=== PATIENT | female | born 1965 | race Caucasian/White ===

== ENCOUNTER 2023-02-22 20:26 | Inpatient (IN) ==
[2023-02-22] MEDS ORDERED: Ondansetron 4 mg VIAL 2 MG/ML 2 ml VIAL IV PRN (22:21)
[2023-02-22] MEDS ORDERED: NS 0.9% 1000 ml BAG 1,000 ML IV SCH (22:30)
[2023-02-22] MEDS ORDERED: Enoxaparin 40 MG/0.4 ML SYR SUBCUT SCH (23:00)
[2023-02-22 23:16] LABS: ABS Lymphocytes 0.9 10^3/uL (1.0-4.8); ABS Monocytes 0.7 10^3/uL (0.0-0.9); ABS Neutrophils 13.5 10^3/uL (1.5-7.6); Eosinophil % 0.2 %; Hematocrit 28.5 % (35-45); Hemoglobin 9.6 g/dL (11.5-14.3); Lymphocyte % 5.7 %; Mean Corpuscular Hemoglobin 28.9 pg (27-33); Mean Corpuscular Hgb Conc 33.6 g/dL (31-36); Mean Corpuscular Volume 86.1 fL (80-97); Mean Platelet Volume 6.8 fL (7.5-11.2); Platelet Count 582 10^3/uL (150-450); Red Blood Count 3.31 10^6/uL (3.63-4.92); Red Cell Distribution Width 14.7 % (12-17); White Blood Count 15.1 10^3/uL (3.8-11.8)
[2023-02-22 23:55] LABS: Albumin 2.8 g/dL (3.2-5.2); Albumin/Globulin Ratio 0.8 (1-3); Calcium 8.6 mg/dL (8.6-10.3); Creatinine, Serum 0.58 mg/dL (0.51-0.95); Globulin 3.4 g/dL (2-4); Potassium 3.4 mmol/L (3.5-5.0); Total Bilirubin 0.3 mg/dL (0.2-1.0); Total Protein 6.2 g/dL (6.4-8.9); eGFR CKD-EPI 104.8 (>60)
[2023-02-23] MEDS ORDERED: D5W 1/2 NS 1000 ml BAG 1,000 ML IV SCH (02:00)
[2023-02-23] MEDS ORDERED: Ciprofloxacin 200mg IVPREMIX 200 MG/100 ML BAG IV SCH (03:00)
[2023-02-23] MEDS: KCL 20 MEQ/100 ML IVPREMIX 20 MEQ/100 ML BAG IV SCH ×3 (03:15→14:18)
[2023-02-23] MEDS ORDERED: metroNIDAZOLE IV 500 MG/100ML 500 MG/100 ML BAG IVPB SCH (04:00)
[2023-02-23] MEDS ORDERED: Levothyroxine 100 MCG/5 ML VIAL IV SCH (09:00)
[2023-02-23] MEDS ORDERED: Lactated Ringers 1000 ml BAG 1,000 ML IV ONE (09:30)
[2023-02-23] MEDS ORDERED: cefTRIAXone 1 gm/50 mL D5W 1 GM/50 ML BAG IV SCH (11:00)
[2023-02-23 12:17] LABS: ABS Lymphocytes 0.7 10^3/uL (1.0-4.8); ABS Monocytes 0.7 10^3/uL (0.0-0.9); ABS Neutrophils 12.5 10^3/uL (1.5-7.6); Eosinophil % 0.2 %; Hematocrit 24.3 % (35-45); Hemoglobin 8.4 g/dL (11.5-14.3); Lymphocyte % 5.1 %; Mean Corpuscular Hemoglobin 29.4 pg (27-33); Mean Corpuscular Hgb Conc 34.5 g/dL (31-36); Mean Corpuscular Volume 85.4 fL (80-97); Mean Platelet Volume 6.8 fL (7.5-11.2); Platelet Count 481 10^3/uL (150-450); Red Blood Count 2.84 10^6/uL (3.63-4.92); Red Cell Distribution Width 14.8 % (12-17)
[2023-02-23 12:27] LABS: Albumin 2.3 g/dL (3.2-5.2); Calcium 7.9 mg/dL (8.6-10.3); Magnesium 1.8 mg/dL (1.9-2.7); Potassium 3.9 mmol/L (3.5-5.0); Total Bilirubin 0.3 mg/dL (0.2-1.0)
[2023-02-23 12:32] LABS: Albumin/Globulin Ratio 0.8 (1-3); Creatinine, Serum 0.4 mg/dL (0.51-0.95); Globulin 2.8 g/dL (2-4); Total Protein 5.1 g/dL (6.4-8.9); eGFR CKD-EPI 114.7 (>60)
[2023-02-23] MEDS: metroNIDAZOLE IV 500 MG/100ML 500 MG/100 ML BAG IVPB SCH (16:14)
[2023-02-23] MEDS: Pantoprazole VIAL 40 MG VIAL IV SCH (16:14)
[2023-02-23] MEDS ORDERED: Albuterol HFA INHALER 8 gm MDI INH PRN (16:23)
[2023-02-23] MEDS ORDERED: Enoxaparin 40 MG/0.4 ML SYR SUBCUT SCH (18:00)
[2023-02-23] MEDS ORDERED: D5LR 1000 ml BAG 1,000 ML IV SCH (18:00)
[2023-02-24] MEDS: metroNIDAZOLE IV 500 MG/100ML 500 MG/100 ML BAG IVPB SCH ×2 (03:51→19:16)
[2023-02-24] MEDS ORDERED: Buffered Lidocaine 1% SYRIN 1 ml INTRADERM ONE (06:00)
[2023-02-24] MEDS ORDERED: Propofol 10 MG/ML 20 ML BTL ONE (06:52)
[2023-02-24] MEDS ORDERED: Midazolam 2 mg/2 ml VIAL 1 mg/ml 2 ml VIAL (2 mg) ONE (06:52)
[2023-02-24] MEDS ORDERED: fentaNYL 100 mcg/2 ml 50 MCG/ML VIAL ONE ×3 (06:52→12:43)
[2023-02-24] MEDS ORDERED: Rocuronium 50 mg VIAL 10 mg/ml 5 ml VIAL (50 mg) ONE (06:52)
[2023-02-24] MEDS ORDERED: Lidocaine 2% PF 5 ML VIAL ONE (06:52)
[2023-02-24 06:59] LABS: ABS Monocytes 0.6 10^3/uL (0.0-0.9); ABS Neutrophils 11.9 10^3/uL (1.5-7.6); Eosinophil % 0.2 %; Hematocrit 24.4 % (35-45); Hemoglobin 8.3 g/dL (11.5-14.3); Lymphocyte % 7.2 %; Mean Corpuscular Hemoglobin 29.2 pg (27-33); Mean Corpuscular Hgb Conc 34.1 g/dL (31-36); Mean Corpuscular Volume 85.8 fL (80-97); Mean Platelet Volume 6.8 fL (7.5-11.2); Platelet Count 512 10^3/uL (150-450); Red Blood Count 2.84 10^6/uL (3.63-4.92); Red Cell Distribution Width 14.5 % (12-17); White Blood Count 13.5 10^3/uL (3.8-11.8)
[2023-02-24 07:06] LABS: Albumin 2.3 g/dL (3.2-5.2); Albumin/Globulin Ratio 0.9 (1-3); Creatinine, Serum 0.42 mg/dL (0.51-0.95); Globulin 2.7 g/dL (2-4); Potassium 3.6 mmol/L (3.5-5.0); Total Bilirubin 0.3 mg/dL (0.2-1.0); eGFR CKD-EPI 113.3 (>60)
[2023-02-24] MEDS ORDERED: Scopolamine 1 mg/72hr PATCH ONE (08:18)
[2023-02-24] MEDS ORDERED: Levalbuterol 1.25MG/0.5ML NEB.SOL ONE (08:18)
[2023-02-24] MEDS ORDERED: Levalbuterol 1.25MG/0.5ML NEB.SOL INH ONE (08:23)
[2023-02-24] MEDS ORDERED: Dexamethasone IV 4 MG/ML VIAL 1 ml VIAL ONE ×2 (08:56)
[2023-02-24] MEDS ORDERED: Ondansetron 4 mg VIAL 2 MG/ML 2 ml VIAL ONE (08:56)
[2023-02-24] MEDS ORDERED: Bupivacaine 0.25% SDV PF 10 ML VIAL INJ ONE (09:05)
[2023-02-24] MEDS ORDERED: Bupivacaine 0.25% w/EPI 10 ML SDV ONE (09:06)
[2023-02-24] MEDS ORDERED: Phenylephrine 40 mcg/mL 10mL (400mcg) SYRINGE ONE (09:11)
[2023-02-24] MEDS ORDERED: Acetaminophen IV 1 GM/100ML 1,000 MG/100 ML BAG IV ONE (09:14)
[2023-02-24] MEDS ORDERED: HYDROmorphone 0.5 MG/0.5 ML SYRINGE ONE (09:16)
[2023-02-24] MEDS ORDERED: Phenylephrine IV 10 MG/ML 1 ml VIAL ONE (09:34)
[2023-02-24] MEDS ORDERED: cefTRIAXone 1 gm/50 mL D5W 1 GM/50 ML BAG IV ONE (10:44)
[2023-02-24] MEDS ORDERED: cefTRIAXone 1 gm/50 mL D5W 1 GM/50 ML BAG IV SCH (11:00)
[2023-02-24 11:16] LABS: Hemoglobin 8.4 g/dL (11.5-14.3)
[2023-02-24] MEDS ORDERED: ROPIVACAINE 5 MG/ML 30 ML BTL (0.5%) ONE (11:43)
[2023-02-24] MEDS ORDERED: Naloxone 0.4 mg VIAL 0.4 mg/ml 1 ml VIAL IV PRN (12:47)
[2023-02-24] MEDS: fentaNYL 100 mcg/2 ml 50 MCG/ML VIAL IV PRN ×2 (12:51→13:36)
[2023-02-24] MEDS ORDERED: HYDROmorphone PCA 20 MG/20 ML PCA.SYRING PCA SCH (14:00)
[2023-02-24] MEDS: Lactated Ringers 1000 ml BAG 1,000 ML IV SCH (15:30)
[2023-02-24] MEDS: Scopolamine 1 mg/72hr PATCH TRANSDERM SCH (17:46)
[2023-02-24] MEDS: Pantoprazole VIAL 40 MG VIAL IV SCH (17:48)
[2023-02-24] MEDS: cefTRIAXone 1 gm/50 mL D5W 1 GM/50 ML BAG IV SCH (18:06)
[2023-02-25] MEDS: Lactated Ringers 1000 ml BAG 1,000 ML IV SCH ×2 (01:25→11:45)
[2023-02-25] MEDS: metroNIDAZOLE IV 500 MG/100ML 500 MG/100 ML BAG IVPB SCH ×2 (04:27→16:07)
[2023-02-25 09:08] LABS: Hemoglobin 8.4 g/dL (11.5-14.3); Mean Corpuscular Hgb Conc 33.5 g/dL (31-36); Mean Corpuscular Volume 86.5 fL (80-97); Mean Platelet Volume 6.5 fL (7.5-11.2); Platelet Count 514 10^3/uL (150-450); Red Blood Count 2.89 10^6/uL (3.63-4.92); Red Cell Distribution Width 14.9 % (12-17); White Blood Count 11.8 10^3/uL (3.8-11.8)
[2023-02-25 10:07] LABS: Calcium 7.7 mg/dL (8.6-10.3); Creatinine, Serum 0.43 mg/dL (0.51-0.95); Potassium 3.6 mmol/L (3.5-5.0); eGFR CKD-EPI 112.7 (>60)
[2023-02-25] MEDS: Enoxaparin 40 MG/0.4 ML SYR SUBCUT SCH (12:42)
[2023-02-25] MEDS: Pantoprazole VIAL 40 MG VIAL IV SCH (16:25)
[2023-02-25] MEDS: cefTRIAXone 1 gm/50 mL D5W 1 GM/50 ML BAG IV SCH (16:48)
[2023-02-26] MEDS: metroNIDAZOLE IV 500 MG/100ML 500 MG/100 ML BAG IVPB SCH ×2 (05:21→15:34)
[2023-02-26] MEDS: Lactated Ringers 1000 ml BAG 1,000 ML IV SCH ×2 (09:19→20:48)
[2023-02-26] MEDS: Enoxaparin 40 MG/0.4 ML SYR SUBCUT SCH (13:17)
[2023-02-26] MEDS: Pantoprazole VIAL 40 MG VIAL IV SCH (15:33)
[2023-02-26] MEDS: cefTRIAXone 1 gm/50 mL D5W 1 GM/50 ML BAG IV SCH (17:21)
[2023-02-27] MEDS: metroNIDAZOLE IV 500 MG/100ML 500 MG/100 ML BAG IVPB SCH ×2 (03:54→15:32)
[2023-02-27] MEDS: Lactated Ringers 1000 ml BAG 1,000 ML IV SCH (05:52)
[2023-02-27] MEDS ORDERED: HYDROmorphone 0.5 MG/0.5 ML SYRINGE IV PRN (08:54)
[2023-02-27] MEDS: Scopolamine 1 mg/72hr PATCH TRANSDERM SCH (09:29)
[2023-02-27] MEDS: Enoxaparin 40 MG/0.4 ML SYR SUBCUT SCH (12:29)
[2023-02-27] MEDS: Pantoprazole VIAL 40 MG VIAL IV SCH (15:32)
[2023-02-27] MEDS: cefTRIAXone 1 gm/50 mL D5W 1 GM/50 ML BAG IV SCH ×2 (17:30→17:41)
[2023-02-28] MEDS: metroNIDAZOLE IV 500 MG/100ML 500 MG/100 ML BAG IVPB SCH ×2 (03:04→16:42)
[2023-02-28 06:58] LABS: ABS Eosinophils 0.1 10^3/uL (0.0-0.5); ABS Lymphocytes 0.8 10^3/uL (1.0-4.8); ABS Monocytes 0.2 10^3/uL (0.0-0.9); ABS Neutrophils 4.1 10^3/uL (1.5-7.6); ABS Nucleated RBC 0.01 10^3/ul; Eosinophil % 1.6 %; Hematocrit 21.1 % (35-45); Hemoglobin 7.2 g/dL (11.5-14.3); Lymphocyte % 14.5 %; Mean Corpuscular Hemoglobin 29.6 pg (27-33); Mean Corpuscular Hgb Conc 34.2 g/dL (31-36); Mean Corpuscular Volume 86.4 fL (80-97); Mean Platelet Volume 6.6 fL (7.5-11.2); Nucleated Red Blood Cells % 0.1 /100 WBC (0.0-0.4); Platelet Count 451 10^3/uL (150-450); Red Blood Count 2.44 10^6/uL (3.63-4.92); Red Cell Distribution Width 14.7 % (12-17); White Blood Count 5.2 10^3/uL (3.8-11.8)
[2023-02-28 07:00] LABS: Calcium 7.4 mg/dL (8.6-10.3); Creatinine, Serum 0.47 mg/dL (0.51-0.95); Potassium 3.2 mmol/L (3.5-5.0); eGFR CKD-EPI 110.3 (>60)
[2023-02-28 12:13] LABS: Ferritin 224.7 ng/mL (11-307)
[2023-02-28] MEDS: Enoxaparin 40 MG/0.4 ML SYR SUBCUT SCH (14:23)
[2023-02-28 14:49] VITALS: BP 102/66
== END 2023-02-28 16:00 | disposition home or self-care (01) | DRG 221 ==
LOC: ED 20:26 → EDHOLD 22:21 → SUATTDRO 22:21 → EDHOLD 02-23 12:10 → MED 02-23 14:32 → SSU 02-23 16:05
PROVIDERS: ADMIT Internal Medicine; ATTEND Internal Medicine Clinical Cardiac Electrophysiology

== ENCOUNTER 2023-04-25 09:10 | Inpatient (IN) ==
[~2023-04-25 09:10] MED LIST: Fluconazole 200 MG IVPREMIX 200 MG/100 ML BAG IV SCH; Fluconazole 200 MG IVPREMIX 200 MG/100 ML BAG IVPB SCH
[2023-04-25 10:00] LABS: Hematocrit 33.4 % (35-45); Hemoglobin 11.6 g/dL (11.5-14.3); Mean Corpuscular Hgb Conc 34.7 g/dL (31-36); Mean Corpuscular Volume 89.5 fL (80-97); Mean Platelet Volume 7.4 fL (7.5-11.2); Platelet Count 243 10^3/uL (150-450); Red Blood Count 3.73 10^6/uL (3.63-4.92); Red Cell Distribution Width 17.5 % (12-17); White Blood Count 2.5 10^3/uL (3.8-11.8)
[2023-04-25 10:01] LABS: ABS Neutrophils 1.6 10^3/uL (1.5-7.6)
[2023-04-25 10:22] LABS: Calcium 9.3 mg/dL (8.6-10.3); Creatinine, Serum 0.98 mg/dL (0.51-0.95); Potassium 3.8 mmol/L (3.5-5.0); eGFR CKD-EPI 66.9 (>60)
[2023-04-25 10:35] LABS: ABS Lymphocytes 0.3 10^3/uL (1.0-4.8); ABS Monocytes 0.5 10^3/uL (0.0-0.9); ABS Nucleated RBC 0.01 10^3/ul; Dohle Bodies Present; Eosinophil % 1.2 %; Lymphocyte % 10.8 %; Nucleated Red Blood Cells % 0.3 %/100WBC (0.0-0.8); RBC Morphology Normal (Normal); Toxic Granulation 2+
[2023-04-25] MEDS: Enoxaparin 40 MG/0.4 ML SYR SUBCUT SCH (17:09)
[2023-04-25] MEDS: NS 0.9% 1000 ml BAG 1,000 ML IV SCH (17:10)
[2023-04-25] MEDS: Diphenoxylat/Atrop 2.5-0.025mg TAB PO SCH (20:20)
[2023-04-26] MEDS: NS 0.9% 1000 ml BAG 1,000 ML IV SCH ×4 (00:10→22:17)
[2023-04-26 07:42] LABS: Hematocrit 26.1 % (35-45); Hemoglobin 9.1 g/dL (11.5-14.3); Mean Corpuscular Hemoglobin 31.5 pg (27-33); Mean Corpuscular Hgb Conc 34.8 g/dL (31-36); Mean Corpuscular Volume 90.6 fL (80-97); Mean Platelet Volume 7.2 fL (7.5-11.2); Red Blood Count 2.88 10^6/uL (3.63-4.92); Red Cell Distribution Width 17.2 % (12-17); White Blood Count 2.5 10^3/uL (3.8-11.8)
[2023-04-26 07:57] LABS: Albumin 2.5 g/dL (3.2-5.2); Albumin/Globulin Ratio 1.1 (1-3); Calcium 7.7 mg/dL (8.6-10.3); Creatinine, Serum 0.57 mg/dL (0.51-0.95); Globulin 2.3 g/dL (2-4); Magnesium 1.8 mg/dL (1.9-2.7); Potassium 3.1 mmol/L (3.5-5.0); Total Bilirubin 0.2 mg/dL (0.2-1.0); Total Protein 4.8 g/dL (6.4-8.9); eGFR CKD-EPI 105.3 (>60)
[2023-04-26 10:11] LABS: ABS Lymphocytes 0.4 10^3/uL (1.0-4.8); ABS Monocytes 0.5 10^3/uL (0.0-0.9); ABS Neutrophils 1.6 10^3/uL (1.5-7.6); Acanthocytes 1+; Dohle Bodies Present; Eosinophil % 1.7 %; Lymphocyte % 15.8 %; Toxic Granulation 2+
[2023-04-26 10:12] LABS: Platelet Count Platelets clumped. 10^3/uL (150-450)
[2023-04-26] MEDS: KCL 20 MEQ/100 ML IVPREMIX 20 MEQ/100 ML BAG IV SCH ×2 (10:30→14:25)
[2023-04-26] MEDS: Diphenoxylat/Atrop 2.5-0.025mg TAB PO SCH ×3 (10:37→22:15)
[2023-04-26] MEDS: Fluconazole 200 MG IVPREMIX 200 MG/100 ML BAG IVPB SCH (12:56)
[2023-04-26] MEDS ORDERED: Diphenoxylat/Atrop 2.5-0.025mg TAB PO SCH (13:00)
[2023-04-26] MEDS: Enoxaparin 40 MG/0.4 ML SYR SUBCUT SCH (17:26)
[2023-04-27] MEDS: NS 0.9% 1000 ml BAG 1,000 ML IV SCH ×3 (05:09→20:34)
[2023-04-27 05:39] LABS: Hematocrit 27.4 % (35-45); Hemoglobin 9.6 g/dL (11.5-14.3); Mean Corpuscular Hemoglobin 31.7 pg (27-33); Mean Corpuscular Hgb Conc 35.1 g/dL (31-36); Mean Corpuscular Volume 90.4 fL (80-97); Mean Platelet Volume 7.2 fL (7.5-11.2); Platelet Count 178 10^3/uL (150-450); Red Blood Count 3.03 10^6/uL (3.63-4.92); Red Cell Distribution Width 17.2 % (12-17); White Blood Count 2.6 10^3/uL (3.8-11.8)
[2023-04-27 05:58] LABS: Albumin 2.4 g/dL (3.2-5.2); Calcium 7.8 mg/dL (8.6-10.3); Creatinine, Serum 0.45 mg/dL (0.51-0.95); Globulin 2.3 g/dL (2-4); Magnesium 1.6 mg/dL (1.9-2.7); Potassium 3.4 mmol/L (3.5-5.0); Total Bilirubin 0.3 mg/dL (0.2-1.0); Total Protein 4.7 g/dL (6.4-8.9); eGFR CKD-EPI 111.4 (>60)
[2023-04-27 07:36] LABS: ABS Lymphocytes 0.3 10^3/uL (1.0-4.8); ABS Monocytes 0.3 10^3/uL (0.0-0.9); ABS Neutrophils 1.9 10^3/uL (1.5-7.6); Eosinophil % 1.2 %; Lymphocyte % 11.8 %; Nucleated Red Blood Cells % 0.1 %/100WBC (0.0-0.8); RBC Morphology Normal (Normal); Toxic Granulation 1+
[2023-04-27] MEDS: Diphenoxylat/Atrop 2.5-0.025mg TAB PO SCH ×3 (08:27→20:33)
[2023-04-27] MEDS: Famotidine IV 10 MG/ML 2 ml VIAL (20 mg) IV SLOW PU SCH (11:11)
[2023-04-27] MEDS: Dexamethasone IV 4 MG/ML VIAL 1 ml VIAL IV SLOW PU SCH (11:11)
[2023-04-27] MEDS: Fluconazole 200 MG IVPREMIX 200 MG/100 ML BAG IVPB SCH (11:17)
[2023-04-27] MEDS: Enoxaparin 40 MG/0.4 ML SYR SUBCUT SCH (16:52)
[2023-04-27] MEDS: Ondansetron ODT 4 mg TAB 4 MG TAB SL PRN (16:58)
[2023-04-28 06:39] LABS: Hematocrit 25.2 % (35-45); Hemoglobin 8.7 g/dL (11.5-14.3); Mean Corpuscular Hgb Conc 34.7 g/dL (31-36); Mean Corpuscular Volume 89.6 fL (80-97); Mean Platelet Volume 7.2 fL (7.5-11.2); Platelet Count 163 10^3/uL (150-450); Red Blood Count 2.81 10^6/uL (3.63-4.92); Red Cell Distribution Width 17.4 % (12-17); White Blood Count 2.2 10^3/uL (3.8-11.8)
[2023-04-28 07:33] LABS: Albumin 2.3 g/dL (3.2-5.2); Calcium 7.8 mg/dL (8.6-10.3); Creatinine, Serum 0.5 mg/dL (0.51-0.95); Globulin 2.3 g/dL (2-4); Magnesium 1.6 mg/dL (1.9-2.7); Potassium 3.4 mmol/L (3.5-5.0); Total Bilirubin 0.2 mg/dL (0.2-1.0); Total Protein 4.6 g/dL (6.4-8.9); eGFR CKD-EPI 108.6 (>60)
[2023-04-28] MEDS: Famotidine IV 10 MG/ML 2 ml VIAL (20 mg) IV SLOW PU SCH (08:11)
[2023-04-28] MEDS: Ondansetron ODT 4 mg TAB 4 MG TAB SL PRN (08:11)
[2023-04-28] MEDS: Dexamethasone IV 4 MG/ML VIAL 1 ml VIAL IV SLOW PU SCH (08:12)
[2023-04-28] MEDS ORDERED: Magnesium Sulf 4 GM/100 ML IV 4,000 MG/100 ML BAG IVPB ONE (09:20)
[2023-04-28] MEDS: Diphenoxylat/Atrop 2.5-0.025mg TAB PO SCH ×3 (09:58→21:45)
[2023-04-28] MEDS: NS 0.9% 1000 ml BAG 1,000 ML IV SCH ×2 (10:03→13:54)
[2023-04-28 10:47] LABS: ABS Lymphocytes 0.3 10^3/uL (1.0-4.8); ABS Monocytes 0.3 10^3/uL (0.0-0.9); ABS Neutrophils 1.6 10^3/uL (1.5-7.6); Lymphocyte % 12.1 %; Nucleated Red Blood Cells % 0.1 %/100WBC (0.0-0.8); RBC Morphology Normal (Normal)
[2023-04-28] MEDS: Fluconazole 200 MG IVPREMIX 200 MG/100 ML BAG IVPB SCH (13:54)
[2023-04-28] MEDS: Enoxaparin 40 MG/0.4 ML SYR SUBCUT SCH (17:10)
[2023-04-28 20:43] LABS: Ferritin 214.7 ng/mL (11-307)
[2023-04-28 20:44] LABS: .Transferrin 116 mg/dL (203-362); Total Iron Binding Capacity 162 mcg/dL (250-450)
[2023-04-29] MEDS: NS 0.9% 1000 ml BAG 1,000 ML IV SCH (09:42)
[2023-04-29] MEDS: Famotidine IV 10 MG/ML 2 ml VIAL (20 mg) IV SLOW PU SCH (09:44)
[2023-04-29] MEDS: Dexamethasone IV 4 MG/ML VIAL 1 ml VIAL IV SLOW PU SCH (09:44)
[2023-04-29] MEDS: Diphenoxylat/Atrop 2.5-0.025mg TAB PO SCH ×3 (09:47→20:07)
[2023-04-29 10:58] LABS: Creatinine, Serum 0.43 mg/dL (0.51-0.95); Potassium 3.3 mmol/L (3.5-5.0); eGFR CKD-EPI 112.7 (>60)
[2023-04-29 10:59] LABS: Calcium 7.3 mg/dL (8.6-10.3)
[2023-04-29] MEDS: Fluconazole 200 MG IVPREMIX 200 MG/100 ML BAG IVPB SCH (11:46)
[2023-04-29] MEDS: KCL 20 MEQ/100 ML IVPREMIX 20 MEQ/100 ML BAG IV SCH ×4 (13:03→19:59)
[2023-04-29] MEDS: Enoxaparin 40 MG/0.4 ML SYR SUBCUT SCH (17:40)
[2023-04-30 06:20] LABS: Calcium 7.6 mg/dL (8.6-10.3); Creatinine, Serum 0.37 mg/dL (0.51-0.95); Magnesium 1.7 mg/dL (1.9-2.7); Potassium 3.6 mmol/L (3.5-5.0); eGFR CKD-EPI 116.8 (>60)
[2023-04-30] MEDS ORDERED: Magnesium Sulfate 2 gm BAG 2 GM/50 ML BAG IVPB ONE (06:39)
[2023-04-30] MEDS: Ondansetron ODT 4 mg TAB 4 MG TAB SL PRN (07:27)
[2023-04-30] MEDS: KCL 20 MEQ/100 ML IVPREMIX 20 MEQ/100 ML BAG IV SCH ×2 (09:02→12:57)
[2023-04-30] MEDS: Famotidine IV 10 MG/ML 2 ml VIAL (20 mg) IV SLOW PU SCH (09:04)
[2023-04-30] MEDS: Diphenoxylat/Atrop 2.5-0.025mg TAB PO SCH ×3 (09:04→21:36)
[2023-04-30] MEDS: Dexamethasone IV 4 MG/ML VIAL 1 ml VIAL IV SLOW PU SCH (09:04)
[2023-04-30] MEDS: Potassium Chloride LIQUID 20 MEQ/15 ML LIQUID PO SCH ×2 (12:56→21:37)
[2023-04-30] MEDS: Enoxaparin 40 MG/0.4 ML SYR SUBCUT SCH (16:41)
[2023-05-01 06:57] LABS: Calcium 7.8 mg/dL (8.6-10.3); Creatinine, Serum 0.4 mg/dL (0.51-0.95); Magnesium 1.7 mg/dL (1.9-2.7); Potassium 4.1 mmol/L (3.5-5.0); eGFR CKD-EPI 114.7 (>60)
[2023-05-01 07:09] LABS: ABS Lymphocytes 1.2 10^3/uL (1.0-4.8); ABS Monocytes 0.6 10^3/uL (0.0-0.9); ABS Neutrophils 4.4 10^3/uL (1.5-7.6); ABS Nucleated RBC 0.01 10^3/ul; Eosinophil % 0.1 %; Hematocrit 27.5 % (35-45); Hemoglobin 9.6 g/dL (11.5-14.3); Lymphocyte % 19.8 %; Mean Corpuscular Hemoglobin 31.1 pg (27-33); Mean Corpuscular Hgb Conc 34.9 g/dL (31-36); Mean Platelet Volume 8.1 fL (7.5-11.2); Nucleated Red Blood Cells % 0.2 %/100WBC (0.0-0.8); Platelet Count 155 10^3/uL (150-450); Red Blood Count 3.08 10^6/uL (3.63-4.92); Red Cell Distribution Width 17.9 % (12-17); White Blood Count 6.2 10^3/uL (3.8-11.8)
[2023-05-01] MEDS ORDERED: Magnesium Sulf 4 GM/100 ML IV 4,000 MG/100 ML BAG IVPB ONE (07:33)
[2023-05-01] MEDS: Famotidine IV 10 MG/ML 2 ml VIAL (20 mg) IV SLOW PU SCH (08:01)
[2023-05-01] MEDS: Potassium Chloride LIQUID 20 MEQ/15 ML LIQUID PO SCH (08:01)
[2023-05-01] MEDS: Diphenoxylat/Atrop 2.5-0.025mg TAB PO SCH (08:01)
[2023-05-01 10:00] VITALS: BP 109/72
== END 2023-05-01 13:10 | disposition home or self-care (01) | DRG 249 ==
LOC: CHOA 09:10 → MED 15:10
PROVIDERS: ADMIT Internal Medicine Hematology & Oncology; ATTEND Internal Medicine Hematology